=== PATIENT | male | born 1940 | race Caucasian/White ===

== ENCOUNTER 2018-08-01 13:44 | Emergency (ER) | payer OTHER ==
[~2018-08-01] VITALS: Ht 170.2 cm; Wt 77.1 kg
[2018-08-01 14:26] LABS: Basophils # (auto) 0.1 uL; Basophils % (auto) 1.3 % (0.0-2.0); Eosinophils # (auto) 0.1 uL; Eosinophils % (auto) 1.9 % (0.0-7.0); Hematocrit 42.2 % (41.0-53.0); Hemoglobin 14.3 g/dL (13.5-17.5); Lymphocytes # (auto) 0.9 uL; Lymphocytes % (auto) 19.4 % (10.0-50.0); Mean Corpuscular Hemoglobin 32.1 pg (28.0-32.0); Mean Corpuscular Hgb Conc. 33.8 g/dL (32.0-36.0); Mean Corpuscular Volume 94.8 fL (80.0-100.0); Monocytes # (auto) 0.7 uL; Monocytes % (auto) 13.7 % (0.0-12.0); Neutrophils # (auto) 3.1 uL; Neutrophils % (auto) 63.7 % (37.0-80.0); Nucleated Red Blood Cells % 0.1 %; Platelet Count (auto) 177 10^3/uL (140-450); Red Blood Cells 4.45 10^6/uL (4.5-5.90); Red Cell Distribution Width 15.9 % (11.8-14.3); White Blood Cell 4.8 10^3/uL (4.4-10.8)
[2018-08-01 14:45] LABS: Albumin 3.6 g/dL (3.4-5.0); BUN/Creatinine Ratio 24.3; Calcium 8.3 mg/dL (8.5-10.1); Magnesium 2.1 mg/dL (1.6-2.6); Potassium 4.8 mmol/L (3.5-5.1)
[2018-08-01 14:50] LABS: Bilirubin, Total 0.3 mg/dL (0.2-1.0); Total Protein 6.8 g/dL (6.4-8.2)
[2018-08-01 17:01] LABS: Urine Bacteria NONE SEEN /hpf (None Seen); Urine Blood Negative /uL (Negative); Urine Specific Gravity 1.013 (1.001-1.035); Urine WBC 8 /hpf (0 - 3)
[2018-08-01] MEDS ORDERED: ENOXAPARIN SOD 80 MG/0.8ML SYRINGE SC ONE (20:30)
[2018-08-01 21:14] LABS: INR 0.93 (0.9-1.15); Partial Thromboplastin Time 24.7 sec (23.64-32.05); Prothrombin Time 10.1 sec (9.06-12.60)
[2018-08-01] MEDS ORDERED: ASPirin 81 mg TAB PO ONE (21:15)
[2018-08-01 23:30] VITALS: BP 122/76
== END 2018-08-01 23:40 | disposition short-term general hospital (02) ==
LOC: ER 13:47
DX: R79.89 Other specified abnormal findings of blood chemistry (principal); R91.8 Other nonspecific abnormal finding of lung field; I25.10 Atherosclerotic heart disease of native coronary artery without angina pectoris; I10 Essential (primary) hypertension; M10.9 Gout, unspecified; Z95.1 Presence of aortocoronary bypass graft
CPT/HCPCS: 36415; 71045; 80053; 81001; 83735; 83880; 84484; 85025; 85610; 85730; 93005; 94761; 96372; 99285; J1650